=== PATIENT | female | born 1965 | race Caucasian/White ===

== ENCOUNTER 2017-12-24 12:45 | Day surgery (SDC) | payer OTHER ==
[2017-12-24 14:23] LABS: ADD MAN DIFF? NO
[2017-12-24 14:27] LABS: BASOPHILS % 0.4 % (0.0-2.0); EOSINOPHILS % 0.6 % (0.0-7.0); HEMATOCRIT 36.9 % (37.0-47.0); LYMPHOCYTES % 38.3 % (15.0-51.0); MEAN CORPUSCULAR HEMOGLOBIN 31.1 pg (29.0-33.0); MEAN CORPUSCULAR HGB CONC 35.2 g/dl (32.0-37.0); MEAN CORPUSCULAR VOLUME 88.3 fl (82.0-101.0); MEAN PLATELET VOLUME 9.9 fl (7.4-10.4); MONOCYTE # 0.4 10^3/ul (0.3-0.9); MONOCYTES % 7.3 % (0.0-11.0); NEUTROPHIL # 2.8 10^3/ul (1.6-7.5); NEUTROPHILS % 53.2 % (39.0-77.0); PLATELET COUNT 254 10^3/UL (140-415); RED BLOOD COUNT 4.18 10^6/ul (4.20-5.40); RED CELL DISTRIBUTION WIDTH 12.1 % (11.5-14.5)
[2017-12-24 14:27] LABS: WHITE BLOOD COUNT 5.3 10^3/ul (4.8-10.8)
[2017-12-24] MEDS: CEFAZOLIN 2 GM/50 ML (PMX) 50 ML IVPB (14:42)
[2017-12-24] MEDS: SOD CHLORIDE 0.9% 1,000 ML IV (14:42)
[2017-12-24 14:45] LABS: ALANINE AMINOTRANSFERASE 43 IU/L (13-69); ALBUMIN 4.3 g/dl (3.3-4.9); ALBUMIN/GLOBULIN RATIO 1.26; ALKALINE PHOSPHATASE 69 IU/L (42-121); ANION GAP 14 (8-16); ASPARTATE AMINO TRANSFERASE 28 IU/L (15-46); BILIRUBIN,INDIRECT 0.6 mg/dl (0-1.1); BILIRUBIN,TOTAL 0.6 mg/dl (0.2-1.3); BLOOD UREA NITROGEN 13 mg/dl (7-20); CALCIUM 9.7 mg/dl (8.4-10.2); CARBON DIOXIDE 28 mmol/L (21-31); CHLORIDE 104 mmol/L (97-110); GLUCOSE 96 mg/dl (70-220); POTASSIUM 4.1 mmol/L (3.5-5.1); SODIUM 142 mmol/L (135-144); TOTAL PROTEIN 7.7 g/dl (6.1-8.1)
[2017-12-24 14:46] LABS: INR 0.86; PROTIME 11.8 Sec (11.9-14.9); PT RATIO 0.9
[2017-12-24 14:47] LABS: PARTIAL THROMBOPLASTIN TIME 29.1 Sec (25.0-35.0)
[2017-12-24] MEDS ORDERED: MIDAZOLAM 1 MG/ML 2 ML INJ (16:46)
[2017-12-24] MEDS ORDERED: FENTAnyl 50 MCG/ML VIAL (16:46)
[2017-12-24] MEDS ORDERED: METOCLOPRAMIDE 10 MG INJ IV (17:00)
[2017-12-24] MEDS ORDERED: MEPERIDINE 25 MG INJ IV (17:00)
[2017-12-24] MEDS ORDERED: FENTAnyl 50 MCG/ML VIAL IV ×2 (17:00)
[2017-12-24] MEDS ORDERED: ALBUTEROL 0.083% (NEB) 2.5 MG/3 ML AMP HHN (17:00)
[2017-12-24] MEDS ORDERED: DIPHENHYDRAMINE 50 MG INJ IV (17:00)
[2017-12-24] MEDS ORDERED: ONDANSETRON 4 MG INJ IV (17:00)
[2017-12-24] MEDS ORDERED: HYDROmorphONE 1 MG/5 ML IV SYRINGE IV ×3 (17:00)
[2017-12-24] MEDS ORDERED: CEFAZOLIN 1 GM INJ (17:04)
[2017-12-24] MEDS: LIDOCAINE 2% (MDV) 20 ML INJ (17:21)
[2017-12-24] MEDS: BUPIVACAINE 0.5% (SDV) 30 ML INJ (17:22)
[2017-12-24] MEDS ORDERED: HYDROCODONE/APAP (5/325) TAB PO (17:30)
== END 2017-12-24 18:12 | disposition home or self-care (01) ==
LOC: SDS 12:45
DX: D17.22 Benign lipomatous neoplasm of skin and subcutaneous tissue of left arm (principal); E78.5 Hyperlipidemia, unspecified
CPT/HCPCS: 14001; 80053; 85025; 85610; 85730; 88307

== ENCOUNTER 2017-12-30 20:29 | Emergency (ER) | payer OTHER | END 2017-12-30 23:29 | disposition home or self-care (01) | LOC: FTE 20:29 | DX: Z48.01 Encounter for change or removal of surgical wound dressing (principal) | CPT/HCPCS: 99283; Z7502 ==